=== PATIENT | male | born 1990 | race Caucasian/White ===

== ENCOUNTER → 2020-03-09 12:32 | Outpatient (BNVA) | payer OTHER, SELFPAY | PROVIDERS: Visit Provider Nurse Practitioner Family | DX: Z20.828 Contact with and (suspected) exposure to other viral communicable diseases (principal) | CPT/HCPCS: 87635 ==

== ENCOUNTER 2022-02-21 11:09 | Emergency (ER) | payer BC, MEDICAID, SELFPAY ==
[2022-02-21 11:21] VITALS: BP 155/106; PULSE 79; RESP 14; TEMP 36.6; O2SAT 99
--- NOTE | 2022-02-21 11:42 | CTR_ITS ---
PROCEDURE INFORMATION: Exam: CT Abdomen And Pelvis With Contrast Exam date and time: 02/21/2022 11:59 AM Age: 31 years old Clinical indication: Vomiting; Abdominal pain; Localized; Left; Additional info: Left sided abd pain with vomiting TECHNIQUE: Imaging protocol: Computed tomography of the abdomen and pelvis with contrast. Axial, coronal and sagittal reformatted images were created and reviewed. Radiation optimization: All CT scans at this facility use at least one of these dose optimization techniques: automated exposure control; mA and/or kV adjustment per patient size (includes targeted exams where dose is matched to clinical indication); or iterative reconstruction. Contrast material: OMNI 350; Contrast volume: 100 ml; Contrast route: INTRAVENOUS (IV); COMPARISON: No relevant prior studies available. RADIATION DOSE METRICS: Total DLP (mGy-cm): 707.47 FINDINGS: Liver: Unremarkable. Gallbladder and bile ducts: No radiodense gallstones. No biliary ductal dilatation. Pancreas: Unremarkable. Spleen: Unremarkable. Adrenal glands: Normal. No mass. Kidneys and ureters: No mass. No radiodense calculi. No hydronephrosis. Stomach and bowel: No bowel wall thickening. No obstruction. No pneumatosis. Appendix: Normal. Intraperitoneal space: No free fluid. No organized fluid collection. No free air. Vasculature: Unremarkable. No aneurysm. Lymph nodes: No pathologically enlarged lymph nodes. Urinary bladder: Unremarkable as visualized. Reproductive: Unremarkable. Bones/joints: No acute osseous abnormality. Soft tissues: Unremarkable. CT/CT abdomen pelvis w con* [id number] IMPRESSION: No CT evidence of acute intra-abdominal or pelvic pathology.
--- NOTE | 2022-02-21 11:44 | ED_ITS ---
HPI - Nausea/Vomiting/Diarrhea General: Chief complaint: Nausea/Vomiting/Diarrhea Stated complaint: abd pain Time Seen by Provider: 02/21/22 11:29 History of Present Illness: Patient comes in with abdominal pain, nausea, vomiting, and diarrhea. States that for the past 3 weeks he has had diarrhea with vomiting in the evening. States he was seen in another clinic last week where they did a stool sample that was negative for infection. The patient states he pain is epigastric/left upper quadrant, sharp, comes and goes. He does admit to drinking multiple beers every night. Denies any medical problems except for hypertension. Associated nausea: Yes Associated symtoms: Reports nausea; Denies anxiety, change in vision, chest pain, dysuria, headache(s) or palpitations Review of Systems Const: Denies: fever(s) or body aches Eyes: Denies: change in vision or blurry vision ENMT: Denies: throat pain or odynophagia Card: Denies: chest pain or palpitations Resp: Denies: dyspnea or productive cough GI: Reports: abdominal pain, nausea, vomiting and diarrhea : Denies: flank pain or dysuria Musc: Denies: neck pain or back pain Skin/Breast: Denies: rash or pruritus Neuro: Denies: headache(s) or numbness in extremities Psych: Denies: anxiety or change in appetite Endo: Denies: polyuria or excessive sweating PFSH ED PFSH: Social History (Updated 03/09/20 @ 10:37 by Sabrina Mcginnis NP) Smoking and tobacco status: current some day smoker cigars Alcohol intake: current Alcohol intake frequency: 0-2 Drinks per Day Physical Exam Const: COMMON NORMALS: no acute distress, patient oriented x3, healthy appearing and alert HENMT: COMMON NORMALS: normocephalic and atraumatic HEAD & SCALP: normocephalic and atraumatic Eye: COMMON NORMALS: Equal, round and reactive pupils present and EOMs intact bilaterally PUPIL: Yes Equal, round and reactive pupils present OTHER: Conjunctival injection Neck/C-Spine: COMMON NORMALS: full ROM and supple Resp: COMMON NORMALS: normal respiratory effort, No retractions and No use of accessory muscles Cardio: COMMON NORMALS: regular rate and regular rhythm RATE: regular rate RHYTHM: regular rhythm GI: COMMON NORMALS: Soft to palpation PALPATION: Yes Soft to palpation OTHER: Epigastric tenderness to palpation Back/Pelvis: COMMON NORMALS: thoracic and lumbar spine normal to inspection and no thoracic nor lumbar tenderness Extremity: COMMON NORMALS: normal to inspection and full ROM Neuro: COMMON NORMALS: patient oriented x3 SENSORIUM/ORIENTATION: Yes alert Psych: COMMON NORMALS: mental status grossly normal and cooperative Skin: COMMON NORMALS: no rashes or lesions noted and no wounds GENERAL SKIN EXAM: no rashes or lesions noted Course Vital Signs: Vital signs: Vital Signs Temperature 97.9 F 02/21/22 11:21 Pulse Rate 79 02/21/22 11:21 Respiratory Rate 14 02/21/22 11:21 Blood Pressure 155/106 02/21/22 11:21 Pulse Oximetry 99 02/21/22 11:21 Oxygen Delivery Me thod 02/21/22 11:21 MDM - Nausea/Vomiting/Diarrhea Medical Decision Making Patient comes in with abdominal pain, nausea, vomiting, and diarrhea. States that for the past 3 weeks he has had diarrhea with vomiting in the evening. States he was seen in another clinic last week where they did a stool sample that was negative for infection. The patient states he pain is epigastric/left upper quadrant, sharp, comes and goes. He does admit to drinking multiple beers every night. Denies any medical problems except for hypertension. On physical exam he does have some conjunctival injection. His abdomen is soft, with mild epigastric tenderness to palpation. Will check labs, give IV fluids, check CT, and reassess. On reassessment I talked to the patient about the test results. Will discharge home at this time with precautions to return for worsening or changing symptoms. Lab Data 02/21/22 11:55 02/21/22 11:55 Radiology Impressions Abdomen/Pelvis CT 02/21/22 11:42 IMPRESSION: No CT evidence of acute intra-abdominal or pelvic pathology. Laboratory Results WBC 11.9 10^3/uL (4.0-10.0) H 02/21/22 11:55 RBC 5.25 10^6/uL (4.1-5.3) 02/21/22 11:55 Hgb 16.3 g/dL (11.7-16.6) 02/21/22 11:55 Hct 48.3 % (42.0-52.0) 02/21/22 11:55 MCV 92.0 fl (80-94) 02/21/22 11:55 MCH 31.0 pg (28.0-34.0) 02/21/22 11:55 MCHC 33.7 g/dL (30.0-36.0) 02/21/22 11:55 RDW 11.9 % (12.1-15.1) L 02/21/22 11:55 Plt Count 236 10^3/cmm (130-400) 02/21/22 11:55 MPV 10.8 fL (7.4-10.4) H 02/21/22 11:55 Neut % (Auto) 50.7 % 02/21/22 11:55 Lymph % (Auto) 20.1 % 02/21/22 11:55 [place] % (Auto) 6.5 % 02/21/22 11:55 Eos % (Auto) 21.8 % 02/21/22 11:55 Baso % (Auto) 0.5 % 02/21/22 11:55 Neut # (Auto) 6.02 10^3/uL (1.8-7.7) 02/21/22 11:55 Lymph # (Auto) 2.4 10^3/uL (0.8-4.8) 02/21/22 11:55 [place] # (Auto) 0.8 10^3/uL (0.2-0.9) 02/21/22 11:55 Eos # (Auto) 2.6 10^3/uL (0.0-0.8) H 02/21/22 11:55 Baso # (Auto) 0.1 10^3/uL (0.0-0.1) 02/21/22 11:55 Nucleated RBC % (auto) 0 % 02/21/22 11:55 Nucleated RBCs # 0.0 /100WBC 02/21/22 11:55 Sodium 132 mmol/L (136-145) L 02/21/22 11:55 Potassium 4.2 mmol/L (3.5-5.1) 02/21/22 11:55 Chloride 95 mmol/L (98-107) L 02/21/22 11:55 Carbon Dioxide 27 mmol/L (22-29) 02/21/22 11:55 Anion Gap 14.2 (5-19) 02/21/22 11:55 BUN 14 mg/dL (6-20) 02/21/22 11:55 Creatinine 1.1 mg/dL (0.7-1.2) 02/21/22 11:55 GFR Calculation 79.1 mL/min (90-130) L 02/21/22 11:55 Glucose 102 mg/dL (65-115) 02/21/22 11:55 Calculated Osmolality 275 mOsm/kg (285-295) L 02/21/22 11:55 Calcium 10.5 mg/dL (8.5-10.5) 02/21/22 11:55 Total Bilirubin 0.6 mg/dL (0.15-1.2) 02/21/22 11:55 AST 19 U/L (0-40) 02/21/22 11:55 ALT 31 U/L (0-41) 02/21/22 11:55 Alkaline Phosphatase 109 U/L (40-130) 02/21/22 11:55 Total Protein 7.8 g/dL (6.6-8.7) 02/21/22 11:55 Albumin 4.7 g/dL (3.5-5.2) 02/21/22 11:55 Globulin 3.1 g/dL (1.3-4.6) 02/21/22 11:55 Lipase 33 U/L (13-60) 02/21/22 11:55 Urine Color Yellow (Yellow) 02/21/22 11:35 Urine Appearance Clear (CLEAR) 02/21/22 11:35 Urine pH 8 (5-7) H 02/21/22 11:35 Ur Specific [place] 1.015 (1.005-1.030) 02/21/22 11:35 Urine Protein Neg (Negative) 02/21/22 11:35 Urine Glucose (UA) Norm (Normal) 02/21/22 11:35 Urine Ketones Negative (Negative) 02/21/22 11:35 Urine Blood Neg (Negative) 02/21/22 11:35 Urine Nitrate Negative (Negative) 02/21/22 11:35 Urine Bilirubin Neg (Negative) 02/21/22 11:35 Prot Sulfosalicylic Acd Negative (Negative) 02/21/22 11:35 Urine Urobilinogen Norm mg/dL (Negative) 02/21/22 11:35 Ur Leukocyte Esterase Negative (Negative) 02/21/22 11:35 Ethyl Alcohol < 10 mg/dL (0-10) 02/21/22 11:55 Discharge Plan Discharge Patient Disposition: Home Clinical Impression: Gastritis Condition: Stable Prescriptions: No Action potassium chloride [Klor-Con M20] 20 mEq tablet,ER particles/crystals 20 meq PO DAILY chlorthalidone 15 mg tablet 20 mg PO DAILY Discharge Orders: Discharge ED (Routine); Ordered 02/21/22 Ordered By: Juno Arreola Patient Instructions: Gastritis (ED) Coding Level of Care Code ED Char Filter Operator Helper for Chg Fwd Exam Comprehensive
[2022-02-21 11:54] LABS: Add Urine Microscopic? NO; Charge for UA Resulting for Rev
[2022-02-21] MEDS: sodium chloride 0.9% 1,000 ML 999 ML IV (11:56)
[2022-02-21] MEDS: iohexol 350 mg/mL 500 mL Btl (per mL) IV (12:03)
[2022-02-21 12:04] LABS: Bilirubin Urine Neg (Negative); Blood Urine Neg (Negative); Glucose Urine UA Norm (Normal); Ketones Urine Negative (Negative); Nitrate Urine Negative (Negative); Protein Urine Neg (Negative); Specific Gravity, Urine 1.015 (1.005-1.030); Sulfosalicylic Acid Urine Negative (Negative); Urine Appearance Clear (CLEAR); Urine Color Yellow (Yellow); Urobilinogen Urine Norm (Negative); pH Urine 8 (5-7)
[2022-02-21 12:05] LABS: Leukocyte Esterase Urine Negative (Negative)
[2022-02-21 12:08] LABS: Basophils # 0.1 10^3/uL (0.0-0.1); Basophils % 0.5 %; Eosinophils # 2.6 10^3/uL (0.0-0.8); Eosinophils % 21.8 %; Hematocrit 48.3 % (42.0-52.0); Hemoglobin 16.3 g/dL (11.7-16.6); Lymphocytes # 2.4 10^3/uL (0.8-4.8); Lymphocytes % 20.1 %; Mean Corpuscular HGB Conc 33.7 g/dL (30.0-36.0); Mean Platelet Volume 10.8 fL (7.4-10.4); Monocytes # 0.8 10^3/uL (0.2-0.9); Monocytes % 6.5 %; Neutrophils # 6.02 10^3/uL (1.8-7.7); Neutrophils % 50.7 %; Nucleated Red Blood Cells % 0 %; Platelet Count 236 10^3/cmm (130-400); Red Blood Count 5.25 10^6/uL (4.1-5.3); Red Cell Distribution Width 11.9 % (12.1-15.1); White Blood Count 11.9 10^3/uL (4.0-10.0)
[2022-02-21 12:34] LABS: Alanine Aminotransferase 31 U/L (0-41); Albumin Level 4.7 g/dL (3.5-5.2); Alkaline Phosphatase 109 U/L (40-130); Anion Gap 14.2 (5-19); Aspartate Amino Transferase 19 U/L (0-40); Blood Urea Nitrogen 14 mg/dL (6-20); Calcium 10.5 mg/dL (8.5-10.5); Carbon Dioxide 27 mmol/L (22-29); Chloride 95 mmol/L (98-107); Globulin 3.1 g/dL (1.3-4.6); Glomerular Filtration Rate 79.1 mL/min (90-130); Glucose 102 mg/dL (65-115); Lipase 33 U/L (13-60); Osmolality Calculated 275 mOsm/kg (285-295); Potassium 4.2 mmol/L (3.5-5.1); Sodium 132 mmol/L (136-145); Total Bilirubin 0.6 mg/dL (0.15-1.2); Total Protein 7.8 g/dL (6.6-8.7)
[2022-02-21 12:47] LABS: Alcohol Level < 10 mg/dL (0-10)
[2022-02-21 14:15] VITALS: BP 133/87; O2SAT 98
== END 2022-02-21 14:16 | disposition home or self-care (01) ==
PROVIDERS: Physician Assistant; Emergency Provider Emergency Medicine
DX: K29.70 Gastritis, unspecified, without bleeding (principal); F17.210 Nicotine dependence, cigarettes, uncomplicated
CPT/HCPCS: 74177; 80053; 80307; 81003; 83690; 85025; 96360; 99285; J7030; Q9967